=== PATIENT | male | born 1970 | race Caucasian/White ===

== ENCOUNTER 2021-05-20 16:44 | Emergency (ER) | payer BC, OTHER ==
[2021-05-20] MEDS ORDERED: Dexamethasone 10 MG/ML SDV IVPUSH ONE (17:53)
--- NOTE | 2021-05-20 17:54 | EDM.PDOC ---
ED HPI GENERAL MEDICAL PROBLEM - General Chief Complaint: ENT Problem Stated Complaint: HARD TO SWALLOW RT EAR ISSUES Time Seen by Provider: 05/20/21 16:46 - History of Present Illness INITIAL COMMENTS - FREE TEXT/NARRATIVE: 50-year-old male with no significant past history presenting with 3 days of right-sided throat pain pain with swallowing and right ear pain. No fever no cough no shortness of breath. Patient reports tender swelling beneath the right mandibular angle as well. Symptoms constant worsened with swallowing no alleviating factors radiation or other associated symptoms. 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 [No Known Home Meds] 05/20/21 [History] Past Medical History - Past Health History Medical/Surgical History: Denies Medical/Surgical History HEENT History: Reports: None Cardiovascular History: Reports: None Respiratory History: Reports: None Gastrointestinal History: Reports: Other (See Below) Other Gastrointestinal History: Hernia repair Genitourinary History: Reports: None Musculoskeletal History: Reports: None Neurological History: Reports: None Psychiatric History: Reports: None Endocrine/Metabolic History: Reports: None Hematologic History: Reports: None Immunologic History: Reports: None Oncologic (Cancer) History: Reports: None Dermatologic History: Reports: None - Infectious Disease History Infectious Disease History: Reports: None - Past Surgical History Head Surgeries/Procedures: Reports: None GI Surgical History: Reports: Hernia, Abdominal Social & Family History - Family History Family Medical History: No Pertinent Family History - Tobacco Use Tobacco Use Status *Q: Current Every Day Tobacco User Years of Tobacco use: 35 Packs/Tins Daily: 1 - Caffeine Use Caffeine Use: Reports: None - Recreational Drug Use Recreational Drug Use: No ED ROS GENERAL - Review of Systems Review Of Systems: See Below Free Text/Narrative/Comment: General: No fever. Skin: No rash. Eyes: No vision problems. ENT: Per HPI Neck: No neck stiffness. Respiratory: No shortness of breath. Cardiac: No chest pain. Gastrointestinal: No nausea, vomiting or abdominal pain. Urinary: No dysuria. Musculoskeletal: No myalgias/arthralgias. Neurologic: No headache. ED EXAM, GENERAL - Physical Exam Exam: See Below Free Text/Narrative:: General Appearance: No acute distress, appears comfortable Skin: No rash HEENT: Normocephalic/atraumatic, sclera anicteric, mucous membranes moist, right TM has some mild erythema with stuck down but no purulent effusion he has an ulcer on his uvula with posterior oropharyngeal erythema there is right-sided tender cervical lymphadenopathy there is no tonsillar exudate there is no asymmetry of the uvula there is no submental or sublingual swelling and no trismus. Neck: Normal range of motion Chest and Lungs: Bilateral breath sounds, clear to auscultation Cardiovascular: Regular rate and rhythm, no murmur Musculoskeletal: No edema or tenderness Neurologic: Awake, alert, no obvious deficits, moving all extremities Psychiatric: Appropriate, cooperative Course - Vital Signs Last Recorded V/S: Last Vital Signs Temp 97.8 F 05/20/21 18:36 Pulse 88 05/20/21 18:36 Resp 18 05/20/21 18:36 BP 140/72 05/20/21 18:36 Pulse Ox 98 05/20/21 18:36 - Orders/Labs/Meds Labs: Laboratory Tests 05/20/21 Range/Units 17:56 Group A Strep (PCR) NOT DETECTED (NOT DETECT) Meds: Medications Discontinued Medications Generic Name Dose Route Start Last Admin Trade Name Monica PRN Reason Stop Dose Admin Dexamethasone 10 mg 05/20/21 17:53 05/20/21 17:57 Dexamethasone 10 Mg/Ml Sdv IVPUSH 05/20/21 17:54 10 mg ONETIME ONE Administration Departure - Departure Time of Disposition: 19:06 Disposition: Home, Self-Care 01 Condition: Good Clinical Impression: Viral pharyngitis - Discharge Information *PRESCRIPTION DRUG MONITORING PROGRAM REVIEWED*: Not Applicable *COPY OF PRESCRIPTION DRUG MONITORING REPORT IN PATIENT CORINNA: Not Applicable Instructions: Sore Throat Referrals: PCP,None [Primary Care Provider] - Forms: ED Department Discharge Additional Instructions: Your symptoms should slowly improve over the next few days. Your strep swab was negative. If your symptoms worsen and you have any trouble breathing please return to the ER. If your symptoms have not resolved by the middle of this week please follow-up at your primary care doctor's office or the urgent care center. If you do not have a primary care doctor you can be seen at one of the clinics listed below. [facility] [address] [place] [id number] [facility] [address] [place] [id number] The following information is given to patients seen in the emergency department who are being discharged to home. This information is to outline your options for follow-up care. We provide all patients seen in our emergency department with a follow-up referral. The need for follow-up, as well as the timing and circumstances, are variable depending upon the specifics of your emergency department visit. If you don't have a primary care physician on staff, we will provide you with a referral. We always advise you to contact your personal physician following an emergency department visit to inform them of the circumstance of the visit and for follow-up with them and/or the need for any referrals to a consulting specialist. The emergency department will also refer you to a specialist when appropriate. This referral assures that you have the opportunity for follow-up care with a specialist. All of these measure are taken in an effort to provide you with optimal care, which includes your follow-up. Under all circumstances we always encourage you to contact your private physician who remains a resource for coordinating your care. When calling for follow-up care, please make the office aware that this follow-up is from your recent emergency room visit. If for any reason you are refused follow-up, please contact the [facility] Emergency Department at and asked to speak to the emergency department charge nurse. Sepsis Event Note (ED) - Evaluation Sepsis Screening Result: No Definite Risk - Focused Exam Vital Signs: Vital Signs Temp Pulse Resp BP Pulse Ox 05/20/21 18:36 97.8 F 88 18 140/72 98 05/20/21 17:09 97.9 F 94 20 137/96 H 94 L - Assessment/Plan Assessment:: 50-year-old male presenting with signs and symptoms most consistent with uveitis and likely viral pharyngitis. Strep needs to be considered as well and relevant swab sent. Patient was given a dose of Decadron here. No airway concerns at this time. Patient handling secretions well.
== END 2021-05-20 19:20 | disposition home or self-care (01) ==
LOC: MW.ED 16:44
DX: J02.9 Acute pharyngitis, unspecified (principal); Z72.0 Tobacco use
CPT/HCPCS: 87651; 96374; 99283; J1100